=== PATIENT | male | born 1955 | race Caucasian/White ===

== ENCOUNTER 2025-01-31 06:00 | Day surgery (SDC) | payer BC, MEDICARE ==
[2025-01-30 09:23] VITALS: BMI 27.2
[~2025-01-31 06:00] MED LIST: EPINEPHrine 0.3 MG in Ophthalmic Irrigation Solution 500 ML IRR SCH
[2025-01-31] MEDS ORDERED: Cyclopentolate 1% Opth Drop 2 ML BOT ONE (06:17)
[2025-01-31] MEDS ORDERED: PROPOFOL 20 ML ONE (07:00)
[2025-01-31] MEDS ORDERED: CEFAZOLIN 1 GM VIAL ONE (07:06)
[2025-01-31] MEDS ORDERED: Lidocaine 1% PF 5 ML VIAL ONE (07:06)
[2025-01-31] MEDS ORDERED: Lidocaine 4% PF 5 ML AMP ONE (07:06)
[2025-01-31] MEDS ORDERED: Maxitrol 0.1% Opth Oint 3.5 GM TUBE ONE (07:06)
== END 2025-01-31 08:19 | disposition home or self-care (01) ==
LOC: SDC 06:00
PROVIDERS: ATTEND Ophthalmology Retina Specialist
PROC: 08B43ZZ Excision of Right Vitreous, Percutaneous Approach (ICD-10-PCS; principal; 2025-01-31)
DX: H43.311 Vitreous membranes and strands, right eye (principal); I10 Essential (primary) hypertension; E78.5 Hyperlipidemia, unspecified; E11.9 Type 2 diabetes mellitus without complications
CPT/HCPCS: J0166; J0690; J1100; J2250; J2704; J3010; J3490